=== PATIENT | male | born 1960 | race Caucasian/White ===

== ENCOUNTER 2018-04-03 14:11 | Emergency (ER) | payer BC ==
[2018-04-03] MEDS ORDERED: ONDANSETRON 4 MG/2 ML VIAL ONE (15:22)
[2018-04-03] MEDS ORDERED: MORPHINE 4 MG/ML SYR ONE (15:22)
[2018-04-03 15:28] LABS: Urine Blood TRACE (NEG); Urine Glucose NEGATIVE (NEG); Urine Protein NEGATIVE (NEG)
--- NOTE | 2018-04-03 15:47 | RAD REPORT ---
EXAM DESCRIPTION: CT - Stone Protocol - 04/03/2018 3:37 pm CLINICAL HISTORY: Abdominal pain, left-sided back and flank pain, history of kidney stones COMPARISON: None. TECHNIQUE: Axial 5 mm thick images were obtained without oral or IV contrast. The moehm-nf-edow span s the entirety of the system including uppermost abdomen and lung bases. All CT scans are performed using dose optimization technique as appropriate and may include automated exposure control or mA/KV adjustment according to patient size. FINDINGS: Mild left-sided hydronephrosis is present secondary to a 6 mm left mid ureter stone. There is perinephric stranding present. Both kidneys have nonobstructing caliceal calculi. The obstructing left calculus, from a KUB projection, is along the left lateral margin L4 body. No suspicious renal masses. Isodense masses and pyelonephritis are not excluded on a stone protocol CT scan. Contracted u rinary bladder shows no suspicious finding. Prostate gland and seminal vesicles within normal limits. Imaged portions of the liver, spleen and pancreas show no suspicious findings on non-contrast imaging . No gallbladder or biliary tree abnormality identified. No significant adrenal finding. No suspicious bowel findings. A 5 cm AP x 3 cm TR umbilical fat only hernia is present. Neck is 3 cm. No bowel involvement or acute component. No acute lung parenchymal process. Focal density in the retroareolar region on the right is probably gynecomastia but is not fully assessed. No mass or bulky lymphadenopathy. No free air, free fluid or inflammatory stranding. No significant bony abnormality. IMPRESSION: Mild left-sided hydronephrosis secondary to a 6 mm left mid ureter calculus. On a KUB projection the obstructing stone is at the left lateral margin L4 body. Bilateral nonobstructing caliceal calculi. Isodense masses and pyelonephritis are not excluded on stone protocol technique. Additional nonacute findings detailed in the body of the report.
--- NOTE | 2018-04-03 16:47 | EDPHYS ---
Physician Documentation [facility] Name: Mike Gold Age: 57 yrs Sex: Male : 1960 Arrival Date: 04/03/2018 Time: 14:12 Bed 23 Private MD: Elliott Najera ED Physician Josué Bass HPI: 04/03 16:50 This 57 yrs old Male presents to ER via Ambulatory with complaints of gs Possible Kidney Stone. 16:51 The patient complains of pain in the left low back and left mid back. The pain radiates gs to the right lower quadrant. Onset: The symptoms/episode began/occurred acutely, this morning. Modifying factors: The symptoms are alleviated by nothing. the symptoms are aggravated by nothing. Associated signs and symptoms: Pertinent negatives: dysuria, hematuria. Severity of pain: At its worst the pain was severe in the emergency department the pain is unchanged. The patient has experienced similar episodes in the past, a few times. The patient has not recently seen a physician. Historical: - Allergies: 14:22 Toradol; hb - Home Meds: 14:22 None [Active]; hb - PMHx: 14:22 Kidney stones; hb - Immunization history:: Adult Immunizations up to date. - Social history:: Smoking status: Patient/guardian denies using tobacco. - Ebola Screening: : No symptoms or risks identified at this time. ROS: 16:51 All other systems are negative. gs Exam: 16:51 Head/Face: Normocephalic, atraumatic. Eyes: Pupils equal round and reactive to light, gs extra-ocular motions intact. Lids and lashes normal. Conjunctiva and sclera are non-icteric and not injected. Cornea within normal limits. Periorbital areas with no swelling, redness, or edema. ENT: Nares patent. No nasal discharge, no septal abnormalities noted. Tympanic membranes are normal and external auditory canals are clear. Oropharynx with no redness, swelling, or masses, exudates, or evidence of obstruction, uvula midline. Mucous membranes moist. Neck: Trachea midline, no thyromegaly or masses palpated, and no cervical lymphadenopathy. Supple, full range of motion without nuchal rigidity, or vertebral point tenderness. No Meningismus. Chest/axilla: Normal chest wall appearance and motion. Nontender with no deformity. No lesions are appreciated. Cardiovascular: Regular rate and rhythm with a normal S1 and S2. No gallops, murmurs, or rubs. Normal PMI, no JVD. No pulse deficits. Respiratory: Lungs have equal breath sounds bilaterally, clear to auscultation and percussion. No rales, rhonchi or wheezes noted. No increased work of breathing, no retractions or nasal flaring. Abdomen/GI: Soft, non-tender, with normal bowel sounds. No distension or tympany. No guarding or rebound. No evidence of tenderness throughout. Back: No spinal tenderness. No costovertebral tenderness. Full range of motion. Skin: Warm, dry with normal turgor. Normal color with no rashes, no lesions, and no evidence of cellulitis. MS/ Extremity: Pulses equal, no cyanosis. Neurovascular intact. Full, normal range of motion. Neuro: Awake and alert, GCS 15, oriented to person, place, time, and situation. Cranial nerves II-XII grossly intact. Motor strength 5/5 in all extremities. Sensory grossly intact. Cerebellar exam normal. Normal gait. 16:51 Constitutional: The patient appears alert, awake, uncomfortable. Vital Signs: 14:20 BP 154 / 104; Pulse 82; Resp 18; Temp 98.8; Pulse Ox 97% on R/A; Weight 109.77 kg; hb Height 6 ft. 1 in. (185.42 cm); Pain 8/10; 16:17 BP 137 / 77; Pulse 79; Resp 18; Pulse Ox 97% on R/A; Pain 3/10; mg2 17:00 BP 126 / 78; Pulse 78; Resp 18; Pulse Ox 100% on R/A; Pain 0/10; mg2 14:20 Body Mass Index 31.93 (109.77 kg, 185.42 cm) hb MDM: 15:09 Patient medically screened. gs 16:51 Differential diagnosis: nephrolithiasis, pyelonephritis, UTI. Data reviewed: vital gs signs, nurses notes. Counseling: I had a detailed discussion with the patient and/or guardian regarding: the historical points, exam findings, and any diagnostic results supporting the discharge/admit diagnosis, the presence of at least one elevated blood pressure reading (>120/80) during this emergency department visit, radiology results, the need for outpatient follow up. Response to treatment: the patient's symptoms have resolved after treatment, and as a result, I will discharge patient. 04/03 14:52 Order name: Urine Dipstick--Ancillary (enter results); Complete Time: 16:02 04/03 15:13 Order name: CT Stone Protocol; Complete Time: 16:02 Administered Medications: 15:33 Drug: morphine 4 mg Route: IVP; Site: right forearm; mg2 16:47 Follow up: Response: No adverse reaction mg2 15:33 Drug: Zofran 4 mg Route: IVP; Site: right forearm; mg2 16:47 Follow up: Response: No adverse reaction mg2 Disposition: 04/03/18 16:46 Discharged to Home. Impression: Hydronephrosis with renal and ureteral calculous obstruction. - Condition is Stable. - Discharge Instructions: Hydronephrosis. - Prescriptions for Tylenol- Codeine #4 300-60 mg Oral Tablet - take 1 tablet by ORAL route every 6 hours As needed; 12 tablet. - Medication Reconciliation Form, Thank You Letter, Antibiotic Education, Prescription Opioid Use form. - Follow up: Cici Beckett MD; When: 1 - 2 days; Reason: Re-evaluation by your physician. Signatures: Dispatcher [employer] EDMS Delisa Denson RN RN Josué Bass MD MD Xavier Zepeda RN RN mg2 Corrections: (The following items were deleted from the chart) 17:01 16:46 04/03/2018 16:46 Discharged to Home. Impression: Hydronephrosis with renal and mg2 ureteral calculous obstruction. Condition is Stable. Forms are Medication Reconciliation Form, Thank You Letter, Antibiotic Education, Prescription Opioid Use. Follow up: Cici Beckett; When: 1 - 2 days; Reason: Re-evaluation by your physician. gs
--- NOTE | 2018-04-03 16:47 | ER ---
Nurse's Notes [facility] Name: Mike Gold Age: 57 yrs Sex: Male : 1960 Arrival Date: 04/03/2018 Time: 14:12 Bed 23 Private MD: Elliott Najera Diagnosis: Hydronephrosis with renal and ureteral calculous obstruction Presentation: 04/03 14:19 Presenting complaint: Left mid back pain that radiates to left flank, nausea, and hb difficulty urinating since 0900 today. Hx kidney stones. Transition of care: patient was not received from another setting of care. Onset of symptoms was April 03, 2018. Risk Assessment: Do you want to hurt yourself or someone else? Patient reports no desire to harm self or others. 14:19 Method Of Arrival: Ambulatory hb 14:19 Acuity: SUSAN 3 hb 15:36 Initial Sepsis Screen: Does the patient meet any 2 criteria? No. Patient's initial mg2 sepsis screen is negative. Does the patient have a suspected source of infection? No. Patient's initial sepsis screen is negative. Care prior to arrival: None. Historical: - Allergies: 14:22 Toradol; hb - Home Meds: 14:22 None [Active]; hb - PMHx: 14:22 Kidney stones; hb - Immunization history:: Adult Immunizations up to date. - Social history:: Smoking status: Patient/guardian denies using tobacco. - Ebola Screening: : No symptoms or risks identified at this time. Screenin:54 Abuse screen: Denies threats or abuse. Denies injuries from another. Nutritional mg2 screening: No deficits noted. Tuberculosis screening: No symptoms or risk factors identified. Fall Risk None identified. Assessment: 15:34 General: Appears uncomfortable, Behavior is cooperative. Pain: Complains of pain in mg2 flank Pain does not radiate. Pain currently is 10 out of 10 on a pain scale. Quality of pain is described as aching, Pain began gradually, since 7 am today Is intermittent, Alleviated by medications. Neuro: Level of Consciousness is awake, alert, obeys commands, Oriented to person, place, time, situation. Cardiovascular: Capillary refill < 3 seconds Patient's skin is warm and dry. Respiratory: Airway is patent Respiratory effort is even, unlabored, Respiratory pattern is regular, symmetrical. GI: Bowel sounds present X 4 quads. Abd is soft. : Urine is clear. EENT: No signs and/or symptoms were reported regarding the EENT system. Derm: Skin is intact, Skin is pink, warm \T\ dry. normal. Musculoskeletal: No signs and/or symptoms reported regarding the musculoskeletal system. 16:18 Reassessment: Patient appears in no apparent distress at this time. Patient and/or mg2 family updated on plan of care and expected duration. Pain level reassessed. Patient is alert, oriented x 3, equal unlabored respirations, skin warm/dry/pink. 17:01 Reassessment: Patient appears in no apparent distress at this time. Patient and/or mg2 family updated on plan of care and expected duration. Pain level reassessed. Patient is alert, oriented x 3, equal unlabored respirations, skin warm/dry/pink. Vital Signs: 14:20 BP 154 / 104; Pulse 82; Resp 18; Temp 98.8; Pulse Ox 97% on R/A; Weight 109.77 kg; hb Height 6 ft. 1 in. (185.42 cm); Pain 8/10; 16:17 BP 137 / 77; Pulse 79; Resp 18; Pulse Ox 97% on R/A; Pain 3/10; mg2 17:00 BP 126 / 78; Pulse 78; Resp 18; Pulse Ox 100% on R/A; Pain 0/10; mg2 14:20 Body Mass Index 31.93 (109.77 kg, 185.42 cm) hb ED Course: 14:12 Patient arrived in ED. sb2 14:12 Elliott Najera MD is Private Physician. sb2 14:20 Triage completed. hb 14:20 Arm band placed on left wrist. hb 14:24 Carissa Butler, GEORGE is Primary Nurse. aj 14:27 Josué Bass MD is Attending Physician. gs 15:[address] nj 15:34 No provider procedures requiring assistance completed. Inserted saline lock: 22 gauge mg2 in right forearm, using aseptic technique. 15:36 Patient has correct armband on for positive identification. mg2 15:37 CT Stone Protocol In Process Unspecified. EDMS 16:45 Cici Beckett MD is Referral Physician. gs 16:59 IV discontinued, intact, bleeding controlled, No redness/swelling at site. Pressure mg2 dressing applied. Administered Medications: 15:33 Drug: morphine 4 mg Route: IVP; Site: right forearm; mg2 16:47 Follow up: Response: No adverse reaction mg2 15:33 Drug: Zofran 4 mg Route: IVP; Site: right forearm; mg2 16:47 Follow up: Response: No adverse reaction mg2 Outcome: 16:46 Discharge ordered by . 17:01 Discharged to home ambulatory, with family. mg2 17:01 Condition: stable 17:01 Discharge instructions given to patient, family, Instructed on discharge instructions, follow up and referral plans. medication usage, Demonstrated understanding of instructions, follow-up care, medications, Prescriptions given X 1. 17:01 Patient left the ED. mg2 Signatures: Dispatcher [employer] EDMS Carissa Butler RN RN aj Baxter, Heather, RN RN hb Jordan, Nathan nj Starr, Gregory, MD MD gs Billeau, Sheri 2 Xavier Zepeda RN RN mg2 Corrections: (The following items were deleted from the chart) 16:19 16:17 Pulse 79bpm; Resp 18bpm; Pulse Ox 97% RA; Pain 3/10; mg2 mg2
== END 2018-04-03 17:01 | disposition home or self-care (01) ==
LOC: ER 14:11
DX: N13.2 Hydronephrosis with renal and ureteral calculous obstruction (principal); Z88.5 Allergy status to narcotic agent
CPT/HCPCS: 74176; 76377; 81003; 96374; 96375; 99284; J2405

== ENCOUNTER 2022-01-01 09:19 | Emergency (ER) | payer BC ==
--- OUTSIDE RECORDS SUMMARY | 2022-01-01 09:24 | XMS REPORT | Continuity of Care Document ---
:1960 Author Organization [facility] t Address [address] [place] [address] Care Team Providers Name Role Phone PCP, DOES NOT HAVE A Primary Care Physician Unavailable Dane VAZQUEZ Attending Clinician Unavailable Only, Db Test Attending Clinician Unavailable Nithin [employer]RIMPING [employer] CAPTAIN Attending Clinician NITHIN Attending Clinician Unavailable Doctor Unassigned, Name Attending Clinician Unavailable Payers Payer Name Policy Type Policy Number Effective Date Expiration Date S ource Problems This patient has no known problems. Allergies, Adverse Reactions, Alerts Allergy Allergy Status Severity Reaction(s) Onset Inactive Treating Comm ents Source Name Type Date Date Clinician NO KNOWN Drug Active [facility]ERG[facility] Class [facility] Social History Social Habit Start Date Stop Date Quantity Comments Source Exposure to Yes [facility] SARS-CoV-2 (event) Medica l Branch Sex Assigned At [birth year] [facility] 00:00:00 00:00:00 [facility] Smoking Status Start Date Stop Date Source Unknown if ever smoked [facility] Medications This patient has no known medications. Procedures This patient has no known procedures. Encounters Start End Encounter Admission Attending Care Care Encounter Source Date/Time Date/Time Type Type Clinicians Facility Department ID 2021-07-16 2021-07-16 Outpatient [facility] [id number] Univers 16:00:00 16:00:00 [id number] [facility] 2021-07-16 2021-07-16 Telephone OXANA Vela [id number] Univers 00:00:00 00:00:00 Akousa CUADRA [id number] it y of HOSPITAL [id number] Stephan as [phone] [facility] 019 Branch 2021-07-14 2021-07-14 Laboratory Only, Ang Db Test [facility] [id number] Univers 15:15:00 15:30:00 Only Nithin Marti [facility] [id number] ity of [place] [id number] Stephan as GABI?BLEA [id number] Nm dical [address] MED[facility] OFF[facility] 2021-07-14 2021-07-14 Outpatient R NITHIN [facility] [id number] Univers 15:15:00 15:28:46 MARTI ity of [facility] 2021-07-14 2021-07-14 Letter Doctor OXANA [id number] Univers 00:00:00 00:00:00 (Out) Unassigned, VENECIA [id number] ity of [place] [facility] [id number] Stephan as [id number] [facility] [address] 2021-07-14 2021-07-14 Letter Doctor OXANA [id number] Univers 00:00:00 00:00:00 (Out) Unassigned, VENECIA [id number] ity of [place] [facility] [id number] Stephan as [phone] [address] Results This patient has no known results.
[2022-01-01] MEDS ORDERED: LIDOCAINE 1% 20 ML MDV ONE (09:48)
[2022-01-01] MEDS ORDERED: LIDOCAINE 1% MPF 5 ML VIAL ONE (09:50)
[2022-01-01] MEDS ORDERED: TETANUS & DIPHTHERIA TOX,ADULT 0.5 ML VIAL ONE (10:00)
--- NOTE | 2022-01-01 10:10 | ER ---
Nurse's Notes [facility] Name: Mike Gold Age: 61 yrs Sex: Male : 1960 Arrival Date: 01/01/2022 Time: 09:22 Bed 15 Private MD: Elliott Najera Diagnosis: Puncture wound with foreign body of left hand, initial encounter-fish hook removed Presentation: 01/01 09:45 Chief complaint: Patient states: "I got this fish hook stuck in my finger about 35 min jd3 ago.". Coronavirus screen: At this time, the client does not indicate any symptoms associated with coronavirus-19. Ebola Screen: No symptoms or risks identified at this time. Initial Sepsis Screen: Does the patient meet any 2 criteria? No. Patient's initial sepsis screen is negative. Does the patient have a suspected source of infection? No. Patient's initial sepsis screen is negative. Risk Assessment: Do you want to hurt yourself or someone else? Patient reports no desire to harm self or others. Onset of symptoms was January 01, 2022. 09:45 Method Of Arrival: Ambulatory jd3 09:45 Acuity: SUSAN 4 jd3 Historical: - Allergies: 09:46 Toradol; jd3 - Home Meds: 09:46 None [Active]; jd3 - PMHx: 09:46 Kidney stones; jd3 - PSHx: 09:46 Lithotripsy; hernia repair; jd3 - Immunization history:: Adult Immunizations up to date, Client reports receiving the Jacoby \\T\\ Jacoby single-dose vaccine. - Social history:: Smoking status: Patient reports use of chewing tobacco. Screenin:48 Abuse screen: Denies threats or abuse. Nutritional screening: No deficits noted. jd3 Tuberculosis screening: No symptoms or risk factors identified. Fall Risk Ambulatory Aid- None/Bed Rest/Nurse Assist (0 pts). Gait- Normal/Bed Rest/Wheelchair (0 pts) Mental Status- Oriented to own ability (0 pts). Total Pendleton Fall Scale indicates No Risk (0-24 pts). Assessment: 09:47 General: Appears in no apparent distress. comfortable, Behavior is calm, cooperative, jd3 appropriate for age. Pain: Denies pain. Neuro: Eldridge Agitation-Sedation Scale (RASS): 0 - Alert and Calm Level of Consciousness is awake, alert, obeys commands, Oriented to person, place, time, situation. Cardiovascular: Capillary refill < 3 seconds Patient's skin is warm and dry. Respiratory: Airway is patent Respiratory effort is even, unlabored, Respiratory pattern is regular, symmetrical. GI: No signs and/or symptoms were reported involving the gastrointestinal system. : No signs and/or symptoms were reported regarding the genitourinary system. EENT: No signs and/or symptoms were reported regarding the EENT system. Derm: Skin is intact, Skin is dry, Skin is normal, Skin temperature is warm. Musculoskeletal: Circulation, motion, and sensation intact. Range of motion: intact in all extremities. Injury Description: Puncture sustained to left index finger is superficial, with a fish hook. Vital Signs: 09:46 BP 139 / 81; Pulse 79; Resp 17 S; Temp 97.6(TE); Pulse Ox 98% on R/A; Weight 106.59 kg jd3 (R); Height 6 ft. 1 in. (185.42 cm) (R); Pain 0/10; 09:46 Body Mass Index 31.00 (106.59 kg, 185.42 cm) jd3 ED Course: 09:22 Patient arrived in ED. am2 09:22 Elliott Najera MD is Private Physician. am2 09:32 Arnaud Fields NP is PHCP. pm1 09:32 Bernard Aguilera MD is Attending Physician. pm1 09:44 Sylvain Montgomery RN is Primary Nurse. jd3 09:45 Triage completed. jd3 09:45 Patient has correct armband on for positive identification. Bed in low position. Call mb7 light in reach. Side rails up X 1. Door closed. Noise minimized. 09:46 Arm band placed on. jd3 09:49 Assist provider with foreign body removal of a fish hook from left index finger Set up jd3 for procedure. Performed by Arnaud Fields [employer] MAN Dressed with 4X4s, Patient tolerated well. 10:10 Mike Villanueva MD is Referral Physician. pm1 10:22 Patient did not have IV access during this emergency room visit. jd3 Administered Medications: 09:48 Drug: Lidocaine (1 %) 1 vials Volume: 5 ml; Route: Infiltration; jd3 10:22 Follow up: Response: No adverse reaction jd3 09:57 Drug: Tetanus-Diphtheria Toxoid Adult 0.5 ml {Wrapper Sizer: [employer]izra. Exp: jd3 10/02/2023. Lot #: [id number]. } Route: IM; Site: right deltoid; 10:22 Follow up: Response: No adverse reaction jd3 10:21 Drug: Doxycycline 100 mg Route: PO; jd3 10:22 Follow up: Response: Medication administered at discharge. jd3 Medication: 09:48 VIS not applicable for this client. jd3 Outcome: 10:10 Discharge ordered by . pm1 10:22 Condition: stable jd3 10:31 Discharged to home ambulatory, with family. jd3 10:31 Discharge instructions given to patient, Instructed on discharge instructions, follow up and referral plans. medication usage, Demonstrated understanding of instructions, follow-up care, medications, Prescriptions given X 1. 10:31 Patient left the ED. jd3 Signatures: Arnaud Fields NP [employer] pm1 Carissa Scales am2 Sylvain Montgomery RN RN jd3 Althea Herrera 7
--- NOTE | 2022-01-01 10:10 | EDPHYS ---
Physician Documentation [facility] Name: Mike Gold Age: 61 yrs Sex: Male : 1960 Arrival Date: 01/01/2022 Time: 09:22 Bed 15 Private MD: Elliott Najera ED Physician Bernard Aguilera HPI: 01/01 10:08 This 61 yrs old Male presents to ER via Ambulatory with complaints of Finger Injury - pm1 fish hook. 10:18 The patient or guardian reports a puncture wound, Hook. The complaints affect the left pm1 index finger. Context: The problem was sustained outdoors, resulted from accident while unhooking a fish. Onset: The symptoms/episode began/occurred just prior to arrival. Modifying factors: The symptoms are alleviated by holding still. Associated signs and symptoms: Pertinent negatives: cyanosis distally, decreased sensation distally, numbness distally, tingling distally. Severity of symptoms: in the emergency department the symptoms are unchanged, patient attempted to remove the hook without success, patient attempted to remove the hook without success. The patient has experienced similar episodes in the past, several times, but has been able to remove it himself. The patient has not recently seen a physician. Historical: - Allergies: 09:46 Toradol; jd3 - Home Meds: 09:46 None [Active]; jd3 - PMHx: 09:46 Kidney stones; jd3 - PSHx: 09:46 Lithotripsy; hernia repair; jd3 - Immunization history:: Adult Immunizations up to date, Client reports receiving the Jacoby \T\ Jacoby single-dose vaccine. - Social history:: Smoking status: Patient reports use of chewing tobacco. ROS: 10:18 Constitutional: Negative for fever, chills, and weight loss, Cardiovascular: Negative pm1 for chest pain, palpitations, and edema, Respiratory: Negative for shortness of breath, cough, wheezing, and pleuritic chest pain. 10:18 Neuro: Negative for headache, weakness, numbness, tingling, and seizure. 10:18 MS/extremity: Positive for puncture, of the left index finger, Negative for decreased range of motion, deformity. 10:18 Skin: Positive for puncture, of the left index finger. 10:18 All other systems are negative. Exam: 10:18 Constitutional: This is a well developed, well nourished patient who is awake, alert, pm1 and in no acute distress. Head/Face: Normocephalic, atraumatic. 10:18 Cardiovascular: Exam negative for acute changes, Rate: normal, Rhythm: regular, Pulses: no pulse deficits are appreciated. 10:18 Respiratory: Exam negative for acute changes, intercostal retractions, shortness of breath. 10:18 Musculoskeletal/extremity: Extremities: grossly normal except: noted in the left index finger: two hooks of the treble hook entering the dorsal aspect of left index finger on the lateral side, ROM: full active range of motion, in the left index finger, full passive range of motion, in the left index finger. Vital Signs: 09:46 BP 139 / 81; Pulse 79; Resp 17 S; Temp 97.6(TE); Pulse Ox 98% on R/A; Weight 106.59 kg jd3 (R); Height 6 ft. 1 in. (185.42 cm) (R); Pain 0/10; 09:46 Body Mass Index 31.00 (106.59 kg, 185.42 cm) jd3 Procedures: 10:06 Foreign Body Removal: a fishhook, from the left hand and left index finger, by removed pm1 with pliers are cutting hook to manageable size and backing out opposite direction of the khadra. The patient tolerated the removal well. MDM: 09:40 Patient medically screened. pm1 10:08 Data reviewed: vital signs. Data interpreted: Pulse oximetry: on room air is 98 %. pm1 Interpretation: normal. 10:08 Special discussion: I discussed in detail with the patient the higher chance of wound pm1 infection based on his presenting history. evaluation in the ER or hand surgery if signs for infection present. 10:08 Counseling: I had a detailed discussion with the patient and/or guardian regarding: the pm1 historical points, exam findings, and any diagnostic results supporting the discharge/admit diagnosis, the need for outpatient follow up, a family practitioner, a hand specialist, to return to the emergency department if symptoms worsen or persist or if there are any questions or concerns that arise at home. Administered Medications: 09:48 Drug: Lidocaine (1 %) 1 vials Volume: 5 ml; Route: Infiltration; jd3 10:22 Follow up: Response: No adverse reaction jd3 09:57 Drug: Tetanus-Diphtheria Toxoid Adult 0.5 ml {Neonatal Doctor: First To File. Exp: jd3 10/02/2023. Lot #: [id number]. } Route: IM; Site: right deltoid; 10:22 Follow up: Response: No adverse reaction jd3 10:21 Drug: Doxycycline 100 mg Route: PO; jd3 10:22 Follow up: Response: Medication administered at discharge. jd3 Disposition Summary: 01/01/22 10:10 Discharge Ordered Location: Home pm1 Problem: new pm1 Symptoms: have improved pm1 Condition: Stable pm1 Diagnosis - Puncture wound with foreign body of left hand, initial encounter - fish hook removedpm1 Followup: pm1 - With: Emergency Department - When: As needed - Reason: Worsening of condition Followup: pm1 - With: Mike Villanueva MD - When: 2 - 3 days - Reason: Recheck today's complaints, Continuance of care, Re-evaluation by your physician Discharge Instructions: - Discharge Summary Sheet pm1 - Puncture Wound pm1 Forms: - Medication Reconciliation Form pm1 - Thank You Letter pm1 - Antibiotic Education pm1 - Prescription Opioid Use pm1 Prescriptions: - Doxycycline Hyclate 100 mg Oral Tablet - take 1 tablet by ORAL route every 12 hours; 20 tablet; Refills: 0, Product pm1 Selection Permitted Addendum: 01/02/2022 17:58 Co-signature as Attending Physician, Bernard nichols a2 Signatures: Arnaud Fields, [employer] POL[employer]OM[employer] TECHNICIAN pm1 Sylvain Montgomery RN RN jd3 Alzahri, Mohammad, MD MD ak2
[2022-01-01] MEDS ORDERED: DOXYCYCLINE 100 MG CAP PO ONE (10:23)
[2022-01-01 11:14] VITALS: BP 139/81; TEMP 97.6; O2SAT 98
== END 2022-01-01 10:31 | disposition home or self-care (01) ==
LOC: ER 09:19
DX: S61.241A Puncture wound with foreign body of left index finger without damage to nail, initial encounter (principal); Z23 Encounter for immunization; Z72.0 Tobacco use; Z87.442 Personal history of urinary calculi; Z88.5 Allergy status to narcotic agent
CPT/HCPCS: 90471; 90714; 99283